=== PATIENT | male | born 1970 | race Caucasian/White ===

== ENCOUNTER 2021-01-17 10:21 | Emergency (ER) | payer OTHER ==
[~2021-01-17] VITALS: Ht 177.8 cm; Wt 90.7 kg
[2021-01-17] MEDS ORDERED: HYDROCODON-ACE1 EA11 PO (12:19)
== END 2021-01-17 12:31 | disposition home or self-care (01) ==
LOC: ED 10:21
DX: S13.9XXA Sprain of joints and ligaments of unspecified parts of neck, initial encounter (principal); X58.XXXA Exposure to other specified factors, initial encounter
CPT/HCPCS: 70450; 70496; 70498; 80053; 85025; 99284-25; A9270; J1170; J7040; Q9967